=== PATIENT | female | born 1960 | race Caucasian/White ===

== ENCOUNTER 2020-03-30 04:26 | Inpatient (IN) | payer OTHER ==
[~2020-03-30] VITALS: Ht 162.6 cm; Wt 80.9 kg
--- NOTE | ~2020-03-30 | HC ---
[facility] [place] [address] CONSULTATION Name: NABEEL DUPONT Room #: 442- ADM IN M.R.#: [id number] Admission: 03/30/20 Attend Phys: Rose Welsh MD Discharge: Date of : 64 Report #: [id number] THIS REPORT FOR: cc: NO FAMILY PHYSICIAN or PCP NO FAMILY PHYSICIAN or PCP Lesli Montano MD ~ CC: Rose Welsh NO PCP DATE OF SERVICE: 03/31/2020 REASON FOR CONSULTATION: Acute kidney injury. REASON FOR PRESENTATION: Muscle aches and cramping. HISTORY OF PRESENT ILLNESS: A 60-year-old with past medical history of cardiomyopathy and an ejection fraction of around 10 to 15%. She is status post ICD. She walked in her yard before her presentation on 03/30 and started to have diffuse body aches. This was associated with myalgias. She tried to take some aspirin and nonsteroidal anti-inflammatory medications to alleviate her symptoms. Symptoms continued to worsen. She presented for further evaluation and management. She was found to have an acute kidney injury with elevated liver enzymes that had significantly elevated CPK to greater than 20,000. All urine studies were consistent with rhabdomyolysis. Creatinine had risen up from 2.2 to 3.0. Prior creatinine value in 2008 was within normal range. She denies any previous knowledge of chronic kidney disease. She is taking Aspirin. She was supposed to take levothyroxine, but she has not been taking it regularly. With the worsening creatinine, I was asked to evaluate the patient. REVIEW OF SYSTEMS: GENERAL: Significant for fatigue and weakness. CARDIOVASCULAR: No chest pain or palpitation. PULMONARY: No cough or hemoptysis. GASTROINTESTINAL: No nausea or vomiting. GENITOURINARY: No frequency, no urgency. SKIN: No rash or ulcerations. NEUROLOGY: No dizziness. No headache. MUSCULOSKELETAL: As per the history of present illness. MEDICATIONS: Aspirin only. ALLERGIES: LATEX. FAMILY HISTORY: No known chronic kidney disease in the family. PAST MEDICAL HISTORY: [facility] [address] [place] [address] CONSULTATION Name: NABEEL DUPONT Room #: [address] [place] [address] IN .R.#: [id number] Admission: 03/30/20 Attend Phys: Rose Welsh MD Discharge: Date of : 64 Report #: [id number] 1. Remote history of hypothyroidism. 2. History of heart failure with an ejection fraction of around 10 to 15% in the past; however, the most recent echo is consistent with an ejection fraction of around 25%. PHYSICAL EXAMINATION: GENERAL: She is alert, oriented, in no apparent distress. VITAL SIGNS: Blood pressure is 113/69. HEAD AND NECK: No jugular venous distention, no bruit, no thyromegaly. CHEST: No crackles. CARDIOVASCULAR: No rub. ABDOMEN: Soft. EXTREMITIES: Lower extremities, no edema. LABORATORY DATA: White blood cell count was 16.5 yesterday and is down to 6.7. Platelets 96. MCV is 106.9. Sodium is 132, potassium is 4.8, BUN is 43, creatinine is 3.0. Lactic acid is 1.2. Phosphorus is 5.7. Total bilirubin is down to 1.2. AST is 1214. CPK greater than 20,000. ASSESSMENT, IMPRESSION AND PLAN: 1. Rhabdomyolysis. 2. Cardiomyopathy. 3. Her acute kidney injury is consistent with rhabdomyolysis given the elevated liver enzymes and the elevated CPK. I have no clear reasons for this; however, this needs to be investigated. Urinary drug screen should be ordered. She takes no medications. Endocrinology is following her for her hypothyroidism. Continue with the IV fluid. Continue to watch her volume status given her significant cardiomyopathy. 4. She does have significantly elevated liver enzymes, thrombocytopenia, high MCV, suggestive of an underlying alcoholic liver disease and I will defer the management of this for the primary team. By: 1413 [id number] Lesli Montano MD /nt
--- NOTE | ~2020-03-30 | HC ---
[facility] [place] [address] CONSULTATION Name: NABEEL DUPONT Room #: 204-P ADM IN M.R.#: [id number] Admission: 03/30/20 Attend Phys: Rose Welsh MD Discharge: Date of : 64 Report #: [id number] THIS REPORT FOR: cc: NO FAMILY PHYSICIAN or PCP NO FAMILY PHYSICIAN or PCP Heriberto Morales MD ~ CC: Rose Welsh NO PCP DATE OF SERVICE: 04/03/2020 HISTORY OF PRESENT ILLNESS: The patient is a 60-year-old white female who was admitted with leg cramps and weakness. She apparently had a yard sale the day prior to admission. She was diagnosed with acute rhabdomyolysis and had a CPK greater than 20,000. She also had acute renal insufficiency with her last creatinine up to 4.2. It was 2.2 on admission. BUN is 55. During her stay, she also had the onset of left-sided weakness on 04/01/2020 and was diagnosed with a CVA with Neurology closely involved. She was not felt to be a candidate for TPA. The CVA appears to be cardioembolic in nature per Neurology. No documented AFib or flutter. She had a recent ICD interrogation revealing [facility] ICD in place, most recently on 03/08/2020. Recommending POPPY once stable. She also is being followed regarding cardiomyopathy, although does not appear to be in overt heart failure at this time. Her CK has been dropping down to 9353. Creatinine is increasing; however. Nephrology is involved. We are seeing her in rehabilitation medicine consultation. PAST MEDICAL HISTORY: Includes coronary artery disease and implantable cardiac defibrillator. She has had prior bilateral total hip replacements. She has had a right knee arthroscopy and has significant ____ involving her right knee with decreased flexion. MEDICATIONS: Please see the full medication listing. ALLERGIES: LATEX AND PENICILLIN. SOCIAL HISTORY: Lives in a house alone. No stairs, was independent, did not use a walker, but always had one nearby. She used a left knee brace to assist her left knee, which is her better knee. She notes she does have involved family in the area. REVIEW OF SYSTEMS: No current complaints of chest pain, shortness of breath or abdominal discomfort. PHYSICAL EXAMINATION: GENERAL: Pleasant 60-year-old white female in no obvious distress. HEENT: Appeared to be benign. Has some depressed left nasolabial fold. [facility] [address] [place] [address] CONSULTATION Name: NABEEL DUPONT Room #: 204-P [facility] IN [facility].#: [id number] Admission: 03/30/20 Attend Phys: Rose Welsh MD Discharge: Date of : 64 Report #: [id number] otherwise appeared symmetric. She was able to answer basic questions without difficulty. VITAL SIGNS: Temperature 97.3, pulse 73, respirations 18, blood pressure is 159/73. Alert, follows basic commands. EXTREMITIES: She has functional range of motion of both upper extremities with strength grade 4-/5. DTRs are trace to 1. In her lower extremities, she has significant decreased right knee flexion. She can only flex at approximately 30 to 40 degrees. She does have full extension. Left knee, she has a knee brace in place. She has better knee flexion probably at least 95 degrees with full extension. Strength of her lower extremities is probably a grade 4-/5. No obvious focal sensory decrease. She has been min assist with sit to stand with gait 50 feet min assist with a front-wheeled walker. ASSESSMENT: A 60-year-old white female with the following problem list: 1. Acute cerebrovascular accident with left-sided weakness. 2. Acute severe rhabdomyolysis. 3. Acute renal failure, which continues worsening with increasing creatinine. 4. Severe hypothyroidism. Endocrinology is involved. 5. Coronary artery disease with prior ICD, apparently needs to have a POPPY per Cardiology note. 6. Metabolic acidosis, resolved with bicarbonate drip. 7. Hyponatremia and hyperkalemia. 8. Transaminitis. 9. Thrombocytopenia. PLAN: Therapies to continue working with her. She certainly may benefit from a short acute in-hospital inpatient rehabilitation stay as she further medically stabilizes. We will continue to follow along with you regarding her rehab therapy needs. Insurance issues would need to be checked into as well. Thank you for asking us to assist in this patient's care. We will be glad to follow along with you regarding her rehab therapy needs. By: 1023 1432 Heriberto Morales MD /nt
[2020-03-30 04:26] VITALS: BP 160/119
[2020-03-30] MEDS ORDERED: ASA81BEC PO (04:34)
[2020-03-30 04:55] LABS: ABSOLUTE NEUTROPHILS 14.2 thou/uL (1.4-8.2); BASOPHILS 0.2 % (0.0-2.0); EOSINOPHILS 0.2 % (0.0-3.0); HEMATOCRIT 52.2 % (37.0-47.0); HEMOGLOBIN 17.8 gm/dL (12.0-15.0); MCH 36.1 pg (26.0-34.0); MCHC 34.1 g/dL (28.0-37.0); MCV 105.9 fL (80.0-100.0); MONOCYTES 5.6 % (1.0-8.0); PLATELET COUNT 189 thou/uL (150-400); RBC 4.93 mil/uL (4.20-5.00); RDW 14.3 % (10.5-14.5); WBC 16.5 thou/uL (4.0-11.0)
[2020-03-30 05:34] LABS: CALCIUM 8.8 mg/dL (8.5-10.1); CREATININE 2.2 mg/dL (0.6-1.0); POTASSIUM 5.3 mmol/L (3.5-5.1)
[2020-03-30 06:31] LABS: URINE BLOOD 3+ (Negative); URINE GLUCOSE-RANDOM* NEGATIVE (Negative); URINE KETONES TRACE (Negative); URINE LEUKOCYTES-REFLEX NEGATIVE (Negative); URINE PROTEIN (DIPSTICK) 3+ (Negative)
[2020-03-30 06:33] LABS: URINE NITRITE-REFLEX POSITIVE (Negative)
[2020-03-30 06:34] LABS: ICTOTEST (BILI CONFIRMATORY) Negative (Negative); URINE BILIRUBIN NEGATIVE (Negative); URINE CLARITY HAZY; URINE COLOR BROWN
[2020-03-30 06:40] LABS: CASTS None Seen /LPF (None Seen); SQUAMOUS >10 Many /LPF (0-3)
[2020-03-30 06:41] LABS: AMORPHOUS URATES Moderate /LPF (None Seen); URINE RBC 0-2 Rare /HPF (0-2); URINE WBC-REFLEX 0-5 Rare /HPF (0-5)
[2020-03-30 06:56] LABS: DIRECT BILIRUBIN 0.4 mg/dL (<0.1-0.2); MAGNESIUM 2.2 mg/dL (1.8-2.4); PHOSPHORUS 5.7 mg/dL (2.6-4.7); TOTAL BILIRUBIN 2.2 mg/dL (0.2-1.0)
[2020-03-30 06:58] LABS: TOTAL PROTEIN 7.5 g/dL (6.4-8.2)
[2020-03-30 08:01] VITALS: BP 158/105
[2020-03-30 09:05] VITALS: BP 148/105
[2020-03-30 10:05] VITALS: BP 148/105
[2020-03-30 10:51] LABS: ALBUMIN 3.7 g/dL (3.4-5.0)
--- NOTE | 2020-03-30 13:29 | 2DMMODE ---
[facility] [address] [place] [address] 2 D/M-MODE ECHOCARDIOGRAM Name: NABEEL DUPONT Room #: 460-P ADM IN M.R.#: [id number] Admission: 03/30/20 Attend Phys: Rose Welsh MD Discharge: Date of : 64 Report #: [id number] THIS REPORT FOR: cc: NO FAMILY PHYSICIAN or PCP NO FAMILY PHYSICIAN or PCP Luis Crews MD ~ APPROVED REPORT Study performed: 03/30/2020 12:39:50 EXAM: Comprehensive 2D, Doppler, and color-flow Echocardiogram Patient Location: Bedside Room #: 460 Status: routine BSA: 1.72 HR: 83 bpm BP: 148/105 mmHg Rhythm: Pacemaker Other Information Study Quality: Adequate Indications Due for echo. History of 15% EF. AICD. 2D Dimensions RVDd: 35.26 mm IVSd: 10.00 (7-11mm) LVOT Diam: 21.00 (18-24mm) LVDd: 58.00 mm PWd: 10.00 (7-11mm) Ascending Ao: 32.00 (22-36mm) LVDs: 53.00 (25-40mm) Aortic Root: 34.44 mm Volumes Left Atrial Volume (Systole) Single Plane 4CH: 69.62 mL Single Plane 2CH: 49.97 mL LA ESV Index: 38.00 mL/m2 Aortic Valve AoV Peak Holden.: 0.90 m/s AO Peak Gr.: 3.21 mmHg LVOT Max P.16 mmHg LVOT Max V: 0.54 m/s JESSICA Vmax: 1.99 cm2 [facility] [address] [place] [address] 2 D/M-MODE ECHOCARDIOGRAM Name: NABEEL DUPONT Room #: 460-P ADM IN .R.#: [id number] Admission: 03/30/20 Attend Phys: Cody Moura Discharge: Date of : 64 Report #: [id number] Mitral Valve MV Decel. Time: 149.37 ms MV E Max Holden.: 0.53 m/s Pulmonary Valve PV Peak Holden.: 0.61 m/s PV Peak Gr.: 1.49 mmHg Tricuspid Valve TR Peak Holden.: 2.55 m/s RAP Estimate: 5.00 mmHg TR Peak Gr.: 26.00 mmHg PA Pressure: 31.00 mmHg Left Ventricle Left ventricle is at the upper limits of normal. There is normal left ventricular wall thickness. Left ventricular systolic function is severely decreased. LVEF is 25%. This study is not technically sufficient to allow evaluation of the LV diastolic function. Right Ventricle The right ventricle is normal size. Right ventricle is mildly hypokinetic. Pacemaker lead is present in the right ventricle. Atria Left atrium is mildly dilated. The right atrium size is normal. Aortic Valve The aortic valve is normal in structure. No aortic regurgitation is present. There is no aortic valvular stenosis. Mitral Valve The mitral valve is normal in structure. Trace mitral regurgitation. No evidence of mitral valve stenosis. Tricuspid Valve The tricuspid valve is normal in structure. Trace to mild tricuspid regurgitation. Estimated PAP is 30-35mmHg. Pulmonic Valve The pulmonary valve is normal in structure. Mild pulmonic regurgitation. Great Vessels The aortic root is normal in size. The ascending aorta is normal in size. IVC is normal in size and collapses >50% with inspiration. [facility] [address] [place] [address] 2 D/M-MODE ECHOCARDIOGRAM Name: NABEEL DUPONT Room #: 460-P ADM IN M.R.#: [id number] Admission: 03/30/20 Attend Phys: Cody Moura Discharge: Date of : 64 Report #: [id number] Pericardium There is no pericardial effusion. <Conclusion> Left ventricle is at the upper limits of normal. Left ventricular systolic function is severely decreased. The right ventricle is normal size. Pacemaker lead is present in the right ventricle. Left atrium is mildly dilated. The aortic valve is normal in structure. Trace mitral regurgitation. Trace to mild tricuspid regurgitation. Estimated PAP is 30-35mmHg. <ELECTRONICALLY SIGNED> By: Luis Crews MD 03/30/20 1329 1329 1329 Luis Crews MD /INF
[2020-03-30 15:22] VITALS: BP 139/87
--- NOTE | 2020-03-30 16:38 | NUR ---
ASSUMED CARE AT AROUND 0910. PT TRANSFER FROM ER. ALERT AND ORIENTED. C/O GENERALIZED BODY PAIN. VSSA/RA. PIV INFUSING. PAIN MEDS GIVEN ORDERED. TOLERATING DIET. GI/ WNL. FALL PRECAUTIONS IN PLACE. EDUCATED PT TO CALL IF NEEDS ARISE. CALL LIGHT IN REACH. WILL CONTINUE TO MONITOR
[2020-03-30 20:01] VITALS: BP 114/73
--- NOTE | 2020-03-31 03:17 | NUR ---
VSS-AFEBRILE. LUNGS CLEAR-ROOM AIR. CONTINUES TO C/O GENERALIZED ALL OVER BODY PAIN THAT IS RELIEVED WITH PO PAIN MEDICATION. ORDERED UNTRASOUND OF BLE COMPLETED THIS SHIFT. REQUESTS TO USE BED DUMONT TO VOID DUE TO PAIN WHEN STANDING AND AMBULATING, NO DIFFICULTY VOIDING. CALLS APPROPRIATELY FOR ANY NEEDED ASSISTANCE.
--- NOTE | 2020-03-31 05:36 | NUR ---
RECIEVED CARE OF THIS PATIENT AT 0530 FROM 4W. PATIENT ARRIVED VIA BED ACCOMPANIED BY 4W PERSONEL. PATIENT ALERT AND ORIENTED X4. IV FLUIDS INFUSING VIA IV IN RAC.
[2020-03-31 05:46] LABS: HEMATOCRIT 39.9 % (37.0-47.0); MCH 36.2 pg (26.0-34.0); MCHC 33.9 g/dL (28.0-37.0); MCV 106.9 fL (80.0-100.0); RBC 3.73 mil/uL (4.20-5.00); RDW 14.1 % (10.5-14.5); WBC 6.7 thou/uL (4.0-11.0)
[2020-03-31 05:51] LABS: HEMOGLOBIN 13.5 gm/dL (12.0-15.0)
[2020-03-31 06:45] LABS: ALBUMIN 2.4 g/dL (3.4-5.0); CALCIUM 7.2 mg/dL (8.5-10.1); POTASSIUM 4.8 mmol/L (3.5-5.1); TOTAL BILIRUBIN 1.2 mg/dL (0.2-1.0); TOTAL PROTEIN 5.3 g/dL (6.4-8.2)
[2020-03-31 07:40] LABS: CHOLESTEROL 166 mg/dL (<200); HDL CHOLESTEROL 47 mg/dL (>40); LDL CHOLESTEROL 98 mg/dL (<100); TC:HDL 3.5 Ratio (Not establshd); TRIGLYCERIDE 107 mg/dL (<150); VLDL 21 mg/dL (<40)
[2020-03-31 08:17] VITALS: BP 113/69
--- NOTE | 2020-03-31 09:06 | EKG ---
[facility] [place] [address] ELECTROCARDIOGRAM REPORT Name: NABEEL DUPONT Room #: 2 ADM IN M.R.#: [id number] Admission: 03/30/20 Attend Phys: Rose Welsh MD Discharge: Date of : 64 Report #: [id number] THIS REPORT FOR: cc: NO FAMILY PHYSICIAN or PCP NO FAMILY PHYSICIAN or PCP Giorgio Fonseca MD [facility] THIS REPORT FOR: //name// [facility] ED Test Date: 2020-03-30 Test Time: 06:14:24 Pat Name: NABEEL DUPONT Department: Room: [facility] Gender: F Ladle Builder: : 1960 Requested By: Horacio Ma Order Number: [id number] MD: Giorgio Fonseca Measurements Intervals [place] Rate: 89 P: 83 TN: 148 QRS: 199 QRSD: 177 T: 120 QT: 466 QTc: 568 Interpretive Statements Atrial-sensed ventricular-paced rhythm No further analysis attempted due to paced rhythm Compared to ECG 08/31/2008 07:00:22 Pacing is now present Electronically Signed On 03-31-2020 9:06:35 CDT by Giorgio Fonseca [email or web address] <ELECTRONICALLY SIGNED> By: Giorgio Fonseca MD, [facility] 03/31/20 0906 3 3 Giorgio Fonseca MD, [facility] /EPI
--- NOTE | 2020-03-31 11:56 | HC ---
[facility] [place] [address] CONSULTATION Name: NABEEL DUPONT Room #: 442- ADM IN M.R.#: [id number] Admission: 03/30/20 Attend Phys: Rose Welsh MD Discharge: Date of : 64 Report #: [id number] THIS REPORT FOR: cc: NO FAMILY PHYSICIAN or PCP NO FAMILY PHYSICIAN or PCP Cristobal Mendez MD ~ CC: Rose Welsh NO PCP DATE OF SERVICE: 03/30/2020 ENDOCRINE CONSULTATION NOTE CONSULTING PHYSICIAN: Dr. Welsh. REASON FOR CONSULTATION: Hypothyroidism, hyponatremia. HISTORY OF PRESENT ILLNESS: This is a 60-year-old female patient whose medical background is rather unremarkable other for a vague mention of distant issues with hypothyroidism and heart failure. The patient was at her usual state of health until about 5 days ago when she started feeling progressively weak and tired after a long day in the sun. She presented with worsening leg cramps and weakness, which warranted admission. The patient mentions that she was diagnosed with a thyroid problem many years ago and that she actually was treated with Synthroid. However, she went on to stop this several years ago and was unclear on the details surrounding that stoppage. She has not noted significant body weight, skin, hair changes. Also, the patient notes that she has been diagnosed with heart failure in the past, but that she has been off of all cardiac medicines for a few years now due to doing better. She does not appreciate much issue with neck fullness, pain, discomfort or compressive symptoms. REVIEW OF SYSTEMS: CONSTITUTIONAL: Fatigue, tiredness, weakness. No fever or chills. HEENT: Negative for sore throat, ear drainage or sinus pain. PULMONARY: Negative for shortness of breath, cough or hemoptysis. CARDIAC: Negative for chest pain, palpitations, syncope or presyncope. GASTROINTESTINAL: Negative for abdominal pain, nausea, vomiting or changes in bowel movement frequency. NEUROLOGY: Negative for loss of consciousness, severe frequent headaches or seizure activity. SKIN: Negative for rash, ulceration or discoloration. PSYCHIATRIC: Negative for depression or anxiety. Otherwise, review of system is noncontributory other than those mentioned in HPI. [facility] [address] [place] [address] CONSULTATION Name: NABEEL DUPONT Room #: 442-P [facility] IN M.R.#: [id number] Admission: 03/30/20 Attend Phys: Rose Welsh MD Discharge: Date of : 64 Report #: [id number] PAST MEDICAL HISTORY: 1. Distant history of hypothyroidism. 2. Distant history of heart failure. MEDICATIONS: Enteric coated aspirin 81 mg daily. ALLERGIES: LATEX, TAPE AND PENICILLIN. FAMILY HISTORY: Noncontributory. SOCIAL HISTORY: The patient denies use of tobacco, alcohol or illicit drugs. She lives alone. She has 3 grown children. She is currently not working. PHYSICAL EXAMINATION: GENERAL: Pleasant female patient who is not in apparent pain or distress. VITAL SIGNS: Blood pressure is 148/105 mmHg, heart rate is 86 beats per minute, respiration 18 per minute, temperature 36.3 degrees Celsius. CONSTITUTIONAL: The patient is sitting upright in bed, appears comfortable, not in apparent distress. HEENT: Anicteric sclerae. Intact extraocular motions. NECK: Supple, without JVD, carotid bruits or lymphadenopathy. Her thyroid gland is prominent, irregular in texture, nontender. CHEST: Noted for good air entry bilaterally with scattered rales, but no wheezes or crackles. HEART: Regular rate and rhythm without murmurs or gallops. ABDOMEN: Soft, lax. No guarding. Active bowel sounds. EXTREMITIES: Lower extremity exam is noted for trace ankle edema bilaterally. No skin breaks. She has active pedal pulses. NEUROLOGIC: Awake, alert and oriented to time, place and person. The remainder of her examination is largely nonfocal. PSYCHIATRY: Pleasant, interactive. Normal mood, normal affect. Normal thought process. LABORATORY RESULTS: Sodium 127, potassium 5.3, chloride 93, CO2 19, anion gap 15, BUN 33, creatinine 2.2, glucose 101. AST 1434. Total bilirubin 2.2, direct bilirubin 0.4, calcium 8.8, phosphorus 5.7, magnesium 2.2, alkaline phosphatase 71, ALT 344, total protein 7.5, albumin 3.7, EGFR 23. Lactic acid 1.2. Total CPK more than 20,000. BNP 60,665. Free T4 0.7, free T3 2.08. White blood count 6.5, hemoglobin 17.8, hematocrit 52.2, platelets 189. TSH 47.638. ASSESSMENT AND PLAN: 1. Hypothyroidism. As noted above, the patient has a noted history of hypothyroidism in the distant past that was actually treated pharmaceutically, but not in a few years. 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 I counseled the patient about the methodology of levothyroxine intake for optimal absorption. The patient was started on levothyroxine 100 mcg daily, which I believe is a reasonable dose choice, especially in the setting of active issues with heart failure. I explained the necessity of long-term commitment to levothyroxine to the patient and the long-term nature of followup and monitoring. She will need thyroid function studies in 2 weeks. 2. Hyponatremia. The patient presented with sodium of 127. This certainly could be contributed to by both severe protracted hypothyroidism as well as heart failure. However, I would also like to rule out the possibility of adrenal insufficiency with a random cortisol level, especially as we move towards active thyroid hormone replacement therapy, so as to avoid the precipitation of an adrenal crisis, should she prove to have adrenal insufficiency. 3. Heart failure. The patient presented in florid heart failure with associated severe elevation in BNP as well as significantly elevated AST and ALT levels, potentially due to hepatic congestion. The primary hospital team is managing this aspect for the time being. I certainly appreciate this consultation by Dr. Welsh. <ELECTRONICALLY SIGNED> By: Cristobal Mendez MD 03/31/20 1156 1307 1520 Cristobal Mendez MD /nt
--- NOTE | 2020-03-31 15:19 | NUR ---
ASSESMENT: CM REVIEWED CHART AND SPOKE WITH PATIENT. PT WAS ADMITTED FOR WILLIS/RHABDO. PT IS ALERT AND ORIENTED X4. PT IS FROM HOME WHERE SHE LIVES IN A HOUSE ALONE. PT REPORTS BEING FULLY INDEPENDENT WITH ADLS AND AMBULATION. PT REPORTS HAVING A WALKER AT HOME FROM PREVIOUS BACK SURGERY. PT REPORTS HAVING HH IN THE PAST AND BEING TO A SNF BUT UNSURE WHERE. PT REPORTS PRIOR TO ADMISSION SHE WAS INDEPENDENT. PT DOES NOT ANTICIPATE HAVING ANY NEEDS FROM CM.
[2020-03-31 15:47] LABS: AMP/METHAMP Negative (Negative); BARBITURATES Negative (Negative); BENZODIAZEPINES Negative (Negative); COCAINE Negative (Negative); METHADONE Negative (Negative); OPIATES POSITIVE (Negative); PCP Negative (Negative)
[2020-03-31 16:24] VITALS: BP 112/71
--- NOTE | 2020-03-31 18:19 | NUR ---
ASSUMED CARE AT 0700. PT IS ALERT AND ORIENTED. VSSA/RA. PACEMAKER IN PLACE. TOLERATING DIET. STRICT I/O PER DR, WILL MONITOR. PIV INFUSING. PAIN MEDS GIVEN PRN ORDERED. PT ABLE TO WALK WITH PT TODAY. STILL SBA. EDUCATED PT TO CALL IF NEEDS ARISE. CALL LIGHT IN REACH. WILL CONTINUE TO MONITOR. MONITORING BLOOD SUGARS WELL.
[2020-03-31 20:51] VITALS: BP 113/75
[2020-04-01 03:15] VITALS: BP 118/68
[2020-04-01 04:10] VITALS: BP 128/77
--- NOTE | 2020-04-01 04:22 | NUR ---
CODE STROKE CALLED AT 0327 FOR NEW ONSET OF LEFT FACIAL DROOP AND SLURRED SPEECH. UPON ASSESSMENT NIH WAS A 4 AT 0330 AND 0410. AT 0330 BLOOD GLUCOSE 86, VITAL SIGNS 118/68, 69, 97% ON ROOM AIR. Gavin DODD TIMBER INCISOR OPERATOR PRESENT AND SPOKE TO NEURO WHO WILL ARRIVE SHORTLY TO ASSESS.
--- NOTE | 2020-04-01 04:32 | NUR ---
PT AOX4. PT REPORTS GENERALIZED PAIN 6-7/10 AT REST AND 10/10 GENERALIZED PAIN WITH MOVEMENT. PT DENIES SOB. PT RECEIVING PRN PO NORCO Q4HR. PT REPORTS INTERMITTENT TINGLING IN BUE AND BLE. PT NOTED TO HAVE A FAINT PULSE IN LLE. SENSATION INTACT TO ALL EXTREMITIES. PT REPORTS INTERMITTENT MUSCLE SPASMS. PT AMBULATING WITH WALKER AND X1 ASSIST TO BEDSIDE COMMODE. PT NOTED TO SHIFT INDEPENDENTLY WHILE IN BED. FREQUENT REPOSITIONING ENCOURAGED. PT TOLERATING PO INTAKE OF FLUID AND HEART HEALTHY DIET. FREQUENT MONITORING CONTINUED. PT NOTED TO BE AWAKE LAST AT 0000 WITHOUT CHANGE TO BASELINE. AROUND 0315 PT AROUSED OUT OF SLEEP DUE TO THIS NURSE CHANGING FLUIDS. PT NOTED TO HAVE LEFT SIDED FACIAL DROOPING, SLURRED SPEECH, AND TONGUE DEVIATING TO LEFT SIDE OF MOUTH. CHARGE NURSE,AUDIO/VISUAL OPERATOR, ETL PROGRAMMER NEW ORDER CLERK NOTIFIED, CODE STROKE ACTIVATED. PT ASSESSED WITH BRIEF NIH OF 2, BP OF 118/68, HR OF 69, AND O2 OF 97% ON ROOM AIR. PER ETL PROGRAMMER NEW ORDER CLERK, STAT CT WITHOUT CONTRAST ORDERED. CT COMPLETED, PT TRANSFERRRED TO , ROOM 204. NEUROLOGY CONSULTED.
[2020-04-01 05:12] LABS: APTT 27.8 Seconds (24.5-32.8); PROTIME 9.9 Seconds (9.3-11.4)
[2020-04-01 05:38] LABS: HEMATOCRIT 35.1 % (37.0-47.0); HEMOGLOBIN 12.1 gm/dL (12.0-15.0); MCHC 34.5 g/dL (28.0-37.0); MCV 107.2 fL (80.0-100.0); RBC 3.27 mil/uL (4.20-5.00); RDW 13.5 % (10.5-14.5); WBC 6.1 thou/uL (4.0-11.0)
[2020-04-01 05:58] LABS: CALCIUM 7.7 mg/dL (8.5-10.1); CREATININE 3.5 mg/dL (0.6-1.0); POTASSIUM 4.4 mmol/L (3.5-5.1)
[2020-04-01 06:08] LABS: CHOLESTEROL 167 mg/dL (<200); HDL CHOLESTEROL 42 mg/dL (>40); LDL CHOLESTEROL 96 mg/dL (<100); TRIGLYCERIDE 148 mg/dL (<150); VLDL 30 mg/dL (<40)
[2020-04-01 06:09] LABS: ALBUMIN 2.4 g/dL (3.4-5.0); TOTAL BILIRUBIN 1.1 mg/dL (0.2-1.0); TOTAL PROTEIN 5.5 g/dL (6.4-8.2)
[2020-04-01 06:11] LABS: SERUM ASSESSMENT Clear
[2020-04-01 07:40] VITALS: BP 137/85
--- NOTE | 2020-04-01 07:52 | NUR ---
PATIENT WAS A TRANSFER TO THE UNIT AT APPROXIMATELY 0400. PATIENT WAS BROUGHT PROMPTLY FROM [address] [place] [address] WITH REPORTS OF POSSIBLE CVA. PATIENT PRESENTED WITH LEFT SIDED FACIAL DROOP, DYSARTHIA, AND LEFT UPPER EXTREMITY DRIFT. PATIENT IS ALERT AND ORIENTED AND ABLE TO CALL APPROPRIATELY FOR NEEDS. STAT CONSULT PLACED TO YOLANDE WITH PROVIDER SEEING PATIENT. SHE WAS PLACED ON NPO DUE TO CONCERNS OF ASPIRATION. DETAILED REPORT GIVEN TO ONCOMING RN. CONTINUE PLAN OF CARE.
[2020-04-01 11:15] VITALS: BP 121/74
[2020-04-01 16:00] VITALS: BP 155/78
--- NOTE | 2020-04-01 16:51 | NUR ---
ASSUMED CARE AT SHIFT CHANGE, ALERT AND ORIENTED X4, AND VSS. ASSESSMENT CHARTED,NHISS AT 3, PATIENT IS IMPROVING AND PROGRESSING TOWARDS GOAL. REMAINS ON BED REST, AND WILL CONTINUE WITH POC.
[2020-04-01 19:30] VITALS: BP 136/65
[2020-04-02] VITALS (7 sets, daily range): BP systolic 123–155; BP diastolic 66–80
[2020-04-02 06:09] LABS: ALBUMIN 2.2 g/dL (3.4-5.0); CALCIUM 8.1 mg/dL (8.5-10.1); CREATININE 3.8 mg/dL (0.6-1.0); PHOSPHORUS 4.3 mg/dL (2.5-4.9); POTASSIUM 3.8 mmol/L (3.5-5.1); TOTAL BILIRUBIN 0.9 mg/dL (0.2-1.0); TOTAL PROTEIN 5.3 g/dL (6.4-8.2)
[2020-04-02 08:06] LABS: GLYCOHEMOGLOBIN (HGB A1C) 4.6 % (4.8-5.6)
--- NOTE | 2020-04-02 10:59 | EKG ---
[facility] [place] [address] ELECTROCARDIOGRAM REPORT Name: NABEEL DUPONT Room #: 204- ADM IN M.R.#: [id number] Admission: 03/30/20 Attend Phys: Rose Welsh MD Discharge: Date of : 64 Report #: [id number] THIS REPORT FOR: cc: NO FAMILY PHYSICIAN or PCP NO FAMILY PHYSICIAN or PCP Giorgio Fonseca MD [facility] THIS REPORT FOR: //name// [facility] Test Date: 2020-04-02 Test Time: 07:44:27 Pat Name: NABEEL DUPONT Department: Room: 204 Gender: F Orthopedic Shoe Maker: MARA : 1960 Requested By: Giorgio Fonseca Order Number: [id number] MD: Giorgio Fonseca Measurements Intervals [place] Rate: 65 P: 8 SD: 131 QRS: 243 QRSD: 195 T: -62 QT: 491 QTc: 511 Interpretive Statements Atrial-sensed ventricular-paced rhythm No further analysis attempted due to paced rhythm Compared to ECG 03/30/2020 06:14:24 No significant changes Electronically Signed On 04-02-2020 10:59:24 CDT by Giorgio Fonseca [email or web address] <ELECTRONICALLY SIGNED> By: Giorgio Fonseca MD, [facility] 04/02/20 1059 0744 0744 Giorgio Fonseca MD, [facility] /EPI
--- NOTE | 2020-04-02 17:17 | NUR ---
ASSUMED CARE AT SHIFT CHANGE, ASSESSMENT DOCUMENTED, AND VSS. PATIENT SLEPT ON AND OFF MOST OF THE DAY. SHE DENIES ANY DISCOMFORT. NIHSS 2-1, AND PROGRESSING TOWARDS GOAL AND WILL CONTINUE WITH POC.
[2020-04-03] VITALS (8 sets, daily range): BP systolic 152–168; BP diastolic 73–90
[2020-04-03 05:27] LABS: HEMATOCRIT 33.6 % (37.0-47.0); HEMOGLOBIN 11.6 gm/dL (12.0-15.0); MCH 36.8 pg (26.0-34.0); MCHC 34.7 g/dL (28.0-37.0); RBC 3.17 mil/uL (4.20-5.00); RDW 13.9 % (10.5-14.5); WBC 4.8 thou/uL (4.0-11.0)
--- NOTE | 2020-04-03 05:32 | NUR ---
PATIENT IS PROGRESSING IN HER CARE PLAN. VITAL SIGNS STABLE WITH PATIENT HAVING NO COMPLAINTS OF PAIN OR NAUSEA. FULLY ALERT AND ORIENTED, PATIENT IS ABLE TO CALL APPROPRIATELY FOR NEEDS AND PARTICIPATE IN CARE. NIH SCORE STILL AT TWO. PATIENT WAS ABLE TO AMBULATE TO THE BEDSIDE COMMODE WITH ASSISTANCE INCIDENT FREE. CONTINUE PLAN OF CARE.
[2020-04-03 05:47] LABS: ALBUMIN 2.2 g/dL (3.4-5.0); CREATININE 4.2 mg/dL (0.6-1.0); POTASSIUM 3.5 mmol/L (3.5-5.1); TOTAL BILIRUBIN 1.1 mg/dL (0.2-1.0); TOTAL PROTEIN 5.4 g/dL (6.4-8.2)
[2020-04-03 07:56] LABS: OBSERVED RETIC COUNT 1.29 % (0.6-2.6)
--- NOTE | 2020-04-03 14:26 | EKG ---
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
--- NOTE | 2020-04-03 15:11 | NUR ---
Spoke with 5N who reports patient is out of network with insurance. Sp with patient and offered options. She is interested in referral to [facility].
--- NOTE | 2020-04-03 16:53 | NUR ---
FAXED REFERRAL TO [facility] RECEIVED CONFIRMATION AND LEFT MSG WITH NICOLASA WEBB ADM. DP TO FOLLOW.
--- NOTE | 2020-04-03 20:57 | NUR ---
PT CARE ASSUMED AT 0700. ASSESSMENT CHARTED. MEDICATION CHARTED. NIH PERFORMED Q4. PT UTILIZES BSC. AO X 4.
[2020-04-04] VITALS (7 sets, daily range): BP systolic 125–176; BP diastolic 55–97
--- NOTE | 2020-04-04 04:20 | NUR ---
ASSESSED AT START OF SHIFT. PT A&OX4. DENIES PAIN. IV INTACT AND FLUIDS INFUISING. PT UP WITH ASSIST TO THE BSC. HAD A HUGE BM THIS SHIFT. NIH SCORE DONE. FALL PREC IN PLACE AND CALL LIGHT IN REACH WILL CONT TO MONITOR.
[2020-04-04 05:59] LABS: ALBUMIN 2.1 g/dL (3.4-5.0); CREATININE 4.2 mg/dL (0.6-1.0); POTASSIUM 3.6 mmol/L (3.5-5.1); TOTAL BILIRUBIN 1.3 mg/dL (0.2-1.0); TOTAL PROTEIN 5.4 g/dL (6.4-8.2)
--- NOTE | 2020-04-04 07:03 | HC ---
[facility] [place] [address] CONSULTATION Name: NABEEL DUPONT Room #: 204-P ADM IN M.R.#: [id number] Admission: 03/30/20 Attend Phys: Rose Welsh MD Discharge: Date of : 64 Report #: [id number] THIS REPORT FOR: cc: NO FAMILY PHYSICIAN or PCP NO FAMILY PHYSICIAN or PCP Felipe Palm MD ~ CC: Lesli Fonseca MD [facility] Dr. Cooper NO PCP REASON FOR CONSULTATION: Thrombocytopenia. HISTORY OF PRESENT ILLNESS: The patient is a 60-year-old female with history significant for alcoholism in the past. Also, in reviewing the chart at back in 2015, her platelets seemed in the range between 120,000 and 140,000. During that admit back in 2015, her alcohol level was 367. Recently, she reports being out, doing yard sale, became weak and tired, was brought to the ER here. She was found to have an AST of 1434 and ALT of 344. Total bilirubin was 2.2. AST is down to 530. Total bilirubin down to 1.1 and ALT down to 322. Alkaline phosphatase appears to be fairly unremarkable during this time. CPK was 9353. Creatinine is currently at 4.2. Platelets on admission here were 189,000, I suspect that was from concentration; the next day 96,000; today 100. Hemoglobin was 11.6. White count 4.8 with an MCV of 106. Note that she has had an ultrasound of abdomen here showing fatty infiltration. No spleen enlargement or spleen pathology or lymphadenopathy. REVIEW OF SYSTEMS: The patient denies any headache, fevers, chills. Did have a slight cough, nonproductive last night she said. No abdominal pain, no diarrhea, no constipation. No new arm or leg swelling. No skin rashes. Also, ____ review of systems, weight is stable without loss or gain. FAMILY HISTORY: Father had diabetes and stroke. Mother had rheumatoid arthritis. She has 3 children, alive and well. She has one dog at home that she reports being healthy. SOCIAL HISTORY: She is not currently working. 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 Also, hypothyroidism, tobacco abuse in the past, congestive heart failure in the past, history of atrial flutter, history of hyperlipidemia, history of hypertension. 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 [facility] [address] [place] [address] CONSULTATION Name: NABEEL DUPONT Room #: 204-P [facility] IN .R.#: [id number] Admission: 03/30/20 Attend Phys: Rose Welsh MD Discharge: Date of : 64 Report #: [id number] PHYSICAL EXAMINATION: GENERAL: The patient appears her stated age. She is seen on a Med/Surg floor. VITAL SIGNS: Height is 5 feet 4 inches or 162.6 cm. Weight is reported twice with slight variance or with some variance, one is 145 pounds and the other is 170 pounds with prior weight for the best 3/4, kilograms 77.1 on one measure and 65.7 on another. MOOD: The patient is alert, pleasant and conversant. NEUROLOGIC: Face looks mostly symmetric this morning to this observer, maybe slight extra nasolabial furrow on the left side. Speech and thought pattern appear to be normal. Moving extremities. LUNGS: Clear, symmetric without stridor, rhonchi or wheezes. HEART: Appears regular rate. LYMPHATICS: No enlarged lymph nodes in the supraclavicular, cervical, axillary, inguinal or epidural region. ABDOMEN: Slightly obese. No organomegaly. Nontender. EXTREMITIES: The patient has a knee brace from outpatient on her left knee that she says helps her when she walks her dog twice a day. No significant ankle swelling. SKIN: Appears to be intact. OTHER RADIOLOGIC FINDINGS: This admission includes CT head that showed no acute intracranial abnormalities. Ultrasound of the carotids showed no significant stenosis in the carotid arteries as detailed ____ in the report. Ultrasound of lower extremities did not show any clots. Ultrasound of abdomen; kidneys are normal in size, pancreas and spleen are normal, does have gallstones without evidence of acute cholecystitis, normal liver in size with generalized increased echogenicity secondary to fatty infiltration. MEDICATIONS: This current day include IV fluids with sodium bicarbonate, clopidogrel 75 mg daily, thiamine 100 mg daily, aspirin 81 mg daily, carvedilol 6.25 b.i.d., levothyroxine 100 mcg daily, hydrocodone p.r.n., Zofran p.r.n. ASSESSMENT AND PLAN: 1. Thrombocytopenia, chronic in nature and stable. B12 and thyroid normal. We will also check folate level. May be related to past alcohol and liver disease, it would be my suspicion. Continue following. Continue with anticoagulants and platelet-active drugs as able that should be safe at this level. 2. Macrocytosis. B12 level was normal. We will also check reticulocyte count and folic acid level, may be related to previous and I would suspect more recent alcohol intake. 3. Transaminitis, improving with hydration, may be related to rhabdomyolysis or suspected alcohol use. 4. Question of left facial droop and stroke. Defer to Neurology and others. Currently on clopidogrel and aspirin. 5. History of pacemaker in situ. Defer to others. 6. Rhabdomyolysis. Defer to Renal. [facility] [address] [place] [address] CONSULTATION Name: NABEEL DUPONT Room #: 204-P ADM IN M.R.#: [id number] Admission: 03/30/20 Attend Phys: Rose Welsh MD Discharge: Date of : 64 Report #: [id number] 7. Renal insufficiency with creatinine of 4.2. Defer IV fluids with sodium bicarbonate and management of drugs and medications to others. 8. Hypothyroid, now on replacement. 9. Hyperlipidemia, not on statins because of liver function elevation. 10. History of flutter and heart failure. Defer to Cardiology. We will follow with you. <ELECTRONICALLY SIGNED> By: Felipe Palm MD 04/04/20 0703 0732 0825 Felipe Palm MD /nt
[2020-04-04 10:07] LABS: HEMOGLOBIN 11.4 g/dL (11.1-15.9)
--- NOTE | 2020-04-04 13:29 | NUR ---
[facility]ADIS accepted clinically and seeking auth for patient.
[2020-04-04 15:41] LABS: HEMATOCRIT 34.2 % (37.0-47.0); HEMOGLOBIN 11.5 gm/dL (12.0-15.0); MCH 36.5 pg (26.0-34.0); MCHC 33.6 g/dL (28.0-37.0); MCV 108.8 fL (80.0-100.0); PLATELET COUNT 111 thou/uL (150-400); RBC 3.15 mil/uL (4.20-5.00); WBC 4.2 thou/uL (4.0-11.0)
[2020-04-04 16:26] LABS: ABSOLUTE NEUTROPHILS 2.5 thou/uL (1.4-8.2); ANISOCYTOSIS 1+; MACROCYTES 1+
--- NOTE | 2020-04-04 17:48 | NUR ---
PT CARE ASSUMEDAT 0700. ASSESSMENTS CHARTED. MEDICATIONS CHARTED. DIET CHANGED TO [facility] ALT CHOPPED. MRI CANCELLED; PPM NOT MRI COMPATIBLE. RAC-S/L. NIH 0.
--- NOTE | 2020-04-05 03:07 | NUR ---
ASSUMED CARE OF PATIENT AT 1900. PATIENT STATED THAT HER HANDS SEEM MORE SWOLLEN TODAY. NO EDEMA NOTED IN LOWER EXTREMITIES. PATIENT ABLE TO TRANSFER FROM BED TO BSC WITH SBA ONLY. PATIENT CONTINUES TO DESAT WITH ACTIVITY. INCREASED OXYGEN TO 2L OXYGEN SAT 85% AFTER TRANSFER.
[2020-04-05 04:45] VITALS: BP 161/94
[2020-04-05 06:00] LABS: HEMATOCRIT 34.4 % (37.0-47.0); HEMOGLOBIN 11.7 gm/dL (12.0-15.0); MCH 36.1 pg (26.0-34.0); MCHC 33.9 g/dL (28.0-37.0); MCV 106.6 fL (80.0-100.0); PLATELET COUNT 122 thou/uL (150-400); RBC 3.23 mil/uL (4.20-5.00); RDW 13.7 % (10.5-14.5); WBC 4.2 thou/uL (4.0-11.0)
[2020-04-05 06:18] LABS: ALBUMIN 2.3 g/dL (3.4-5.0); CALCIUM 9.2 mg/dL (8.5-10.1); POTASSIUM 3.4 mmol/L (3.5-5.1); TOTAL BILIRUBIN 1.1 mg/dL (0.2-1.0); TOTAL PROTEIN 5.7 g/dL (6.4-8.2)
[2020-04-05 08:38] VITALS: BP 181/97
[2020-04-05 10:19] VITALS: BP 140/80
[2020-04-05] MEDS ORDERED: CLOPIDOGREL75 MG PO (10:53)
[2020-04-05] MEDS ORDERED: COREG6.25 MG PO (10:54)
[2020-04-05] MEDS ORDERED: SYNTHROID100 MC1 PO (10:54)
[2020-04-05 11:18] LABS: ABSOLUTE NEUTROPHILS 3.2 thou/uL (1.4-8.2)
[2020-04-05 11:19] LABS: ANISOCYTOSIS SLIGHT; LARGE PLATELETS OCCASIONAL; MACROCYTES 1+
--- NOTE | 2020-04-05 13:43 | NUR ---
SPOKE WITH NICOLASA IN ADM AT [facility] THEY RECEIVED AUTH FAXED DC ORDERS/SUMMARY TO FACILITY SPOKE WITH NICOLASA SHE RECEIVED ORDERS AND ARRANGED TRANSPORT BY [facility] FOR 15O0 TODAY. UNIT NOTIFIED AND CHART COPY PER US. RN TO CALL REPORT TO [phone].
--- NOTE | 2020-04-05 14:34 | NUR ---
ASSUMMED PT CARE AT APPROXIMATELY 0700. PT A&O X4. ASSESSMENT CHARTED. FALL PRECAUTIONS IN PLACE. PT DENIES HAVING CHEST PAIN. PT DENIES HAVING SOB. PT DENIES HAVING ACUTE PAIN. VITAL SIGNS STABLE. PT TRANSFERRING TO [facility]. REPORT GIVEN TO TERRA AT [facility]. NURSE STATED UNDERSTANDING AND DENIED HAVING FURTHER QUESTIONS. IV DC. TELE DC. PT UP TO CHAIR THROUGHOUT DAY. PT AMBULATES STEADY C WALKER AND 1 ASSIST. PT COMFORTABLE PT DENIES HAVING FURTHER CONCERNS.
--- NOTE | 2020-04-05 16:20 | NUR ---
GLADIS sharma auth for 5N. Patient in agreemne with plan. Offered to call family and patien reports she will call her family. [facility] for [phone]. Chart copied. RN called report. Orders faxed no further needs.
--- NOTE | 2020-04-05 19:57 | HC ---
[facility] [place] [address] CONSULTATION Name: NABEEL DUPONT Room #: 204-P [facility] IN M.R.#: [id number] Admission: 03/30/20 Attend Phys: Rose Welsh MD Discharge: 04/05/20 Date of : 64 Report #: [id number] THIS REPORT FOR: cc: NO FAMILY PHYSICIAN or PCP NO FAMILY PHYSICIAN or PCP Maximilian Lee MD ~ CC: Rose Welsh NO PCP DATE OF SERVICE: 04/01/2020 HISTORY OF PRESENT ILLNESS: This is a 60-year-old female patient who was seen by me for a stroke protocol. I talked to the nurses on the floor now, and I talked to the nurse who took care of this patient on the fourth floor. Nurse indicated that she had seen this patient around midnight and the patient was well. Then, around 3:00, she went to check on this patient and noticed that she may be having facial weakness on the left side. She also noticed speech difficulty at that time. Her NIH score was 4, and I was called just before 4:30, the first time on this patient. I confirmed the history that NIH stroke scale was 4 and came to the hospital and saw this patient. This patient has multiple issues. She had rhabdo, and she is being cautiously hydrated because they are concerned that she might go to congestive heart failure because of her low ejection fraction. She is markedly hypothyroid. Her creatinine yesterday was 3, which has risen from 2.2. She has no prior history of stroke. REVIEW OF SYSTEMS: Positive for rhabdo, which appeared to have happened because of combination of hypothyroidism, which happened because she has stopped taking her thyroid medication. She apparently was overheated, and it is suspected that a combination of that as well as hypothyroidism caused her problem. REVIEW OF SYSTEMS: Positive for what looks like cardiomyopathy. Unfortunately, she also has a pacemaker and defibrillator. It was interrogated, and there is no documentation that she ever had and atrial fibrillation. This was a relevant 14-point review which was done quickly because of time constraint. PAST MEDICAL HISTORY: Negative for stroke. SOCIAL HISTORY: She says she does not drink any alcohol or smoke. PHYSICAL EXAMINATION: Indicate she is alert. She is responsive. She can follow simple command. She has no problem with comprehension or expression, but she is dysarthric. Her speech is understandable, but is dysarthric. Cranial nerve examination 2-12 indicates that she has pretty prominent left facial palsy. She is definitely weak on the left side, but she is most of the time able to hold the left leg 5 seconds and left arm for 10 seconds, but tough to [facility] [address] [place] [address] CONSULTATION Name: NABEEL DUPONT Room #: 204-P [facility] IN M.R.#: [id number] Admission: 03/30/20 Attend Phys: Rose Welsh MD Discharge: 04/05/20 Date of : 64 Report #: [id number] tell if there is drift or not. It looks like there is some, but she is nowhere close to hitting the bed. She said her sensation looks intact on the left side. It is difficult to tell the cerebellar function because of ataxia. She does not appear to have hemianopsia. IMPRESSION: Clinically, the patient's history is consistent with cerebrovascular accident. Time of onset need to be considered at midnight. When I was contacted on the phone just before 4:30 a.m. this morning, I was told NIH is 4 which will qualify as a mild nondisabling stroke as the patient is right handed and has mainly dysarthria and not expressive aphasia. 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 Multiple strategies were considered, and I talked to the nurses and tried to see if the time of onset cannot be determined with any more accuracy, but talking to everybody the time of onset is midnight and it is a wakeup stroke, so she was outside the window for 3 hours and her PT and PTT is still pending and she is outside the window for 4-1/2 hours. In this institution, TPA has to be mixed by a pharmacy and it takes them 15-30 minutes to bring it after we ordered, so with the time constraint, she was also outside the window for 4-1/2 hours. I considered 9-hour window in this patient, but that requires imaging study, which I cannot do because her creatinine is rising. We can go ahead and do the contrast and her kidney will most likely shut down, but because of the nondisabling nature of the stroke, it is difficult to justify it. The other problem is that the patient can become worse. I considered calling the MRI team stat on this patient and looking at MRI and MRA. I cannot do that because she has a pacemaker and defibrillator. We need to find out if it is compatible with MRI or not, but even if it is compatible, the thing has to be set up in this institution where the wrap has to be there and typically that takes about 24-48 hours in this institution on the weekdays and I do not know how long it will take on the weekends. The other thing is in a recent paper from [place], they recommended treating the patient with a nondisabling stroke and NIH of less than 5 with aspirin rather than TPA. There was no significant difference in the disability on that study. I discussed all of it with the patient in detail. I discussed all our options with her. The plan in this patient is that I will get a stat carotid Doppler. If the carotid Doppler shows some occlusion of one of the carotids, then we can consider intervention. That occlusion has to be because of thrombosis, not stenosis. If not, there is not much we can do. We tried to give her fluid, but they are all concerned with the possibility of congestive heart failure and we can give only so much fluid. I lowered her bed. She has virtually no reactive hypertension, and her blood pressure has been running about 118/112, it was reasonable when she came in. Her last platelet count was low at 96 and the blood from this morning is still pending. I am not sure why the delay in the blood is. Since we do not have the platelet from this morning even at the time of this dictation at 5:19, we can proceed with TPA because we do not know what [facility] [address] [place] [address] CONSULTATION Name: NABEEL DUPONT Room #: 204-P [facility] IN M.R.#: [id number] Admission: 03/30/20 Attend Phys: Rose Welsh MD Discharge: 04/05/20 Date of : 64 Report #: [id number] the platelet will be and the PT, PTT is still pending. She does have some increased MCV, but she says she does not drink any alcohol at all. This is a difficult case. After discussing all the options with her, she is not a TPA candidate because it is already 5 hours and 19 minutes and we do not even have the labs yet. She cannot not be evaluated for a 9-hour window because we do not know whether there is a salvageable tissue or not. I can do only limited evaluation for us to see if she is a thrombectomy candidate, but again her NIH is still less than 6. After discussing all the options with the patient, the plan is to give her some fluid. We will try to keep her as much flat as possible. We will await the blood workup. Even her platelet count is low, I will give her aspirin. She can swallow properly and I will get a speech evaluation in the morning and hopefully they are available at the weekend. If they clear her, then I will give her Plavix depending upon her platelet count. She needs to be re-interrogated to look for any evidence for atrial fibrillation, and we will discuss with Cardiology for that. Thank you very much for this referral, and if you have any question, please feel free to contact me. I will follow up this patient with you later on today. <ELECTRONICALLY SIGNED> By: Maximilian Lee MD 04/05/201956 0521 0611 Maximilian Lee MD /nt
== END 2020-04-05 14:45 | DRG 557 ==
LOC: ER 04:26 → 2N 07:32 → EROBS 07:32 → 4S 07:32 → 4W 09:29 → 4S 03-31 05:40 → 2N 04-01 04:13
PROVIDERS: Emergency Medicine; Hospitalist; Internal Medicine Hematology & Oncology; Nurse Practitioner; Nurse Practitioner Family; Psychiatry & Neurology Neuromuscular Medicine; ADMIT Hospitalist; ATTEND Hospitalist
PROC: 4B02XTZ Measurement of Cardiac Defibrillator, External Approach (ICD-10-PCS; principal; 2020-03-31)
DX: M62.82 Rhabdomyolysis (principal); I63.9 Cerebral infarction, unspecified; N17.9 Acute kidney failure, unspecified; E87.1 Hypo-osmolality and hyponatremia; I42.9 Cardiomyopathy, unspecified; G81.94 Hemiplegia, unspecified affecting left nondominant side; N39.0 Urinary tract infection, site not specified; Z96.643 Presence of artificial hip joint, bilateral; E86.0 Dehydration; E03.9 Hypothyroidism, unspecified; D72.829 Elevated white blood cell count, unspecified; I50.9 Heart failure, unspecified; D69.6 Thrombocytopenia, unspecified; D75.89 Other specified diseases of blood and blood-forming organs; R74.0 Nonspecific elevation of levels of transaminase and lactic acid dehydrogenase [LDH]; E78.5 Hyperlipidemia, unspecified; I25.10 Atherosclerotic heart disease of native coronary artery without angina pectoris; E87.5 Hyperkalemia; D64.9 Anemia, unspecified; N14.1 Nephropathy induced by other drugs, medicaments and biological substances; T50.995A Adverse effect of other drugs, medicaments and biological substances, initial encounter; Z88.0 Allergy status to penicillin; Z91.040 Latex allergy status; Z83.3 Family history of diabetes mellitus; Z82.3 Family history of stroke; Z82.61 Family history of arthritis; Z95.0 Presence of cardiac pacemaker; Z79.82 Long term (current) use of aspirin; Z79.899 Other long term (current) drug therapy; Y92.89 Other specified places as the place of occurrence of the external cause
CPT/HCPCS: 10040; 10081; 10195